=== PATIENT | male | born 1990 | race African-American/Black ===

== ENCOUNTER 2018-05-29 21:12 | Emergency (ER) | payer MEDICAID ==
[~2018-05-29] VITALS: Ht 177.8 cm; Wt 86.5 kg
[2018-05-29] MEDS ORDERED: HYDROcodone/APAP 5/325 TABLET ONE (21:56)
[2018-05-29] MEDS ORDERED: HYDROcodone/APAP 5/325 TABLET PO ONE (22:00)
[2018-05-29 23:15] VITALS: BP 128/65
== END 2018-05-29 23:17 | disposition home or self-care (01) ==
LOC: ED 22:38
DX: S00.11XA Contusion of right eyelid and periocular area, initial encounter (principal); J45.909 Unspecified asthma, uncomplicated; R51 Headache; Y04.8XXA Assault by other bodily force, initial encounter; Y93.89 Activity, other specified; Y99.8 Other external cause status; Y92.89 Other specified places as the place of occurrence of the external cause
CPT/HCPCS: 70450; 70480; 99284